=== PATIENT | female | born 1960 | race Caucasian/White ===

== ENCOUNTER 2019-09-22 21:47 | Emergency (ER) | payer BC, OTHER ==
[2019-09-22] MEDS ORDERED: FLU Vacc QS2019-20(6MOS+)/PF 60 MCG/0.5 ML SYRINGE IM ONE (22:30)
--- NOTE | 2019-09-22 22:39 | EDM.PDOC ---
ED HPI GENERAL MEDICAL PROBLEM - General Chief Complaint: Lower Extremity Injury/Pain Stated Complaint: LEFT LEG INJURY KNEE PAIN Time Seen by Provider: 09/22/19 22:00 Source of Information: Reports: Patient, Family () History Limitations: Reports: No Limitations - History of Present Illness INITIAL COMMENTS - FREE TEXT/NARRATIVE: Mrs. Patel is a very pleasant 59-year-old woman vascular history significant for arthritis, status post numerous orthopedic surgeries, who states that her right foot slipped while her left foot was still on the running board as she was getting out of the passenger side of her vehicle around 13:00 this afternoon , causing her left knee to bend sideways and somewhat backwards. Since then, she has developed increasingly worse left knee pain. Her left knee is painful to bear weight, and she states that it often jerel forward when she walks. The patient has been icing her knee, but has otherwise taken no over-the- counter or home remedies. The patient states that her left knee suffered a patellar dislocation when she was 14 years old. There was no fracture. It was reduced, but did not require surgery. The patient and her recently moved to this area from [place], [place], and she has not found a PCP here. Her PCP in [place], [place], is Dr. Kailyn Cooper. The patient has not received an influenza vaccine this season, but agreed to receive one here. Left Knee Pain Score (Numeric/FACES): 7 - Related Data Allergies Allergy/AdvReac Type Severity Reaction Status Date / Time No Known Allergies Allergy Verified 09/22/19 22:05 Home Meds: Home Meds ClonazePAM [KlonoPIN] 0.5 mg PO DAILY 09/22/19 [History] DULoxetine HCl [Cymbalta] 60 mg PO DAILY 09/22/19 [History] Desloratadine [Clarinex] 5 mg PO DAILY 09/22/19 [History] Montelukast [Singulair] 10 mg PO DAILY 09/22/19 [History] buPROPion [Wellbutrin] 150 mg PO DAILY 09/22/19 [History] Past Medical History HEENT History: Reports: Allergic Rhinitis Musculoskeletal History: Reports: Fracture (left elbow), Osteoarthritis Neurological History: Reports: Other (See Below) (Restless leg syndrome) Psychiatric History: Reports: Depression - Past Surgical History HEENT Surgical History: Reports: Adenoidectomy, Oral Surgery ([place] teeth extraction. Dental extractions.), Tonsillectomy Female Surgical History: Reports: Breast Reduction, Hysterectomy (with unilateral oophorectomy), Other (See Below) (Bladder suspension) Musculoskeletal Surgical History: Reports: ORIF (left elbow x 2), Shoulder Surgery (right, arthroscopic, x 4), Other (See Below) (Bilateral thumb fusions. Right thumb ligament repair x 2.) Dermatological Surgical History: Reports: Plastic Surgical Reconstruction/ Repair (abdominoplasty x 2) Social & Family History - Tobacco Use Smoking Status *Q: Never Smoker - Alcohol Use Alcohol Use History: Yes Alcohol Use Frequency: Rarely - Recreational Drug Use Recreational Drug Use: No - Living Situation & Occupation Living situation: Reports: , with Spouse Occupation: Unemployed Review of Systems - Review of Systems Review Of Systems: Comprehensive ROS is negative, except as noted in HPI. ED EXAM, GENERAL - Physical Exam Exam: See Below Exam Limited By: No Limitations General Appearance: Alert, WD/WN, No Apparent Distress Extremities: Other (There is minimal swelling to the left knee, when compared to the right, but no obvious joint effusion. No other visible abnormalities, such as erythema, ecchymosis, or abrasion. No tenderness to the anterior, lateral, medial, or posterior knee, however, there is some tenderness over the pes anserine bursa. Both anterior and posterior drawer signs are negative, and there is no laxity or pain involved with stressing the medial or lateral collateral ligaments. Neurovascular status of the left lower extremity is intact.) Course - Vital Signs Last Recorded V/S: Last Vital Signs Temp 36.8 C 09/22/19 22:04 Pulse 88 09/22/19 22:04 Resp 16 09/22/19 22:04 BP 144/98 H 09/22/19 22:04 Pulse Ox 100 09/22/19 22:04 - Orders/Labs/Meds Orders: Active Orders 24 hr Category Date Time Status Influenza Vaccine Charge [RC] .DISCHARGE Care 09/22/19 22:30 Active Knee 3V Lt [CR] Stat Exams 09/22/19 22:29 Ordered Meds: Medications Discontinued Medications Generic Name Dose Route Start Last Admin Trade Name Freq PRN Reason Stop Dose Admin Influenza Virus Vaccine 60 mcg 09/22/19 22:30 Fluzone Quad [id number] Syringe IM 09/22/19 22:31 .ONCE ONE - Re-Assessments/Exams Free Text/Narrative Re-Assessment/Exam: 09/22/19 23:03 3-view radiographs of the left knee appear to demonstrate a mild joint effusion , but no fractures or dislocations. Formal read per the Radiologist pending. The patient's physical exam does not suggest a ligamentous injury, however, she may have injured her meniscus, therefore I will have the patient fitted for crutches and have her follow-up with Ortho. I will also refer the patient to our clinic, to establish a PCP. The patient will receive an influenza vaccine prior to discharge. Departure - Departure Time of Disposition: 23:13 Disposition: Home, Self-Care 01 Condition: Good Clinical Impression: Internal derangement of left knee - Discharge Information *PRESCRIPTION DRUG MONITORING PROGRAM REVIEWED*: Not Applicable *COPY OF PRESCRIPTION DRUG MONITORING REPORT IN PATIENT MICHELE: Not Applicable Referrals: Eduin Gallardo MD [Physician] - Nehal Pak MD [Physician] - Forms: ED Department Discharge Additional Instructions: You were seen in the emergency room after slipping and injuring your left knee while getting out of a car. Workup in the ER included x-rays of your left knee, which show a mild joint effusion, but no broken bones or dislocations. Based on your history, physical exam, and ER x-rays, you appear to have an internal derangement of your left knee, possibly an injury to your meniscus. You have been fitted with crutches. We recommend that you use the crutches anytime you are ambulating. Be very careful going up or down stairs, and around ice. We recommend that you ice and elevate your left knee as much as possible over the next 2 days, to help minimize swelling. We recommend that you take [id number] ibuprofen, 2-3 tablets (400-600 mg) every 8 hours, with food, as needed for discomfort. Follow-up with the Orthopedic Surgeon Dr. Eduin Gallardo at the next available appointment. You may also follow-up with Dr. Nehal Pak, or any of the other providers in the clinic, to establish a PCP. If any other problems, please do not hesitate to return to the ER. *You received an influenza vaccine during your ER visit.* - My Orders Last 24 Hours: My Active Orders 09/22/19 22:29 Knee 3V Lt [CR] Stat 09/22/19 22:30 Influenza Vaccine Charge [RC] .DISCHARGE - Assessment/Plan Last 24 Hours: My Active Orders 09/22/19 22:29 Knee 3V Lt [CR] Stat 09/22/19 22:30 Influenza Vaccine Charge [RC] .DISCHARGE
--- NOTE | 2019-09-24 09:17 | CR ---
Left knee: AP, lateral and sunrise patellar views of the left knee were obtained. Small spur is noted at the attachment of the quadriceps tendon to the patella. Medial and lateral joint compartments are maintained in height. No acute fracture or other bony abnormality is identified. Impression: 1. Incidental patellar spur. 2. Nothing acute is appreciated on left knee exam. Diagnostic code #2 This report was dictated in Mountain Standard Time
== END 2019-09-22 23:28 | disposition home or self-care (01) ==
LOC: JD.ED 21:47
DX: M23.92 Unspecified internal derangement of left knee (principal); F32.9 Major depressive disorder, single episode, unspecified; Z79.899 Other long term (current) drug therapy; V48.4XXA Person boarding or alighting a car injured in noncollision transport accident, initial encounter; Y92.810 Car as the place of occurrence of the external cause
CPT/HCPCS: 73562-26-LT; 73562-LT; 90471; 90686; 99283; 99283-25

== ENCOUNTER 2020-12-14 22:47 | Emergency (ER) | payer BC, OTHER ==
[2020-12-14] MEDS ORDERED: Lidocaine/EPINEPHrine/Tetracaine Soln 1 ML TOP ONE (23:29)
--- NOTE | 2020-12-15 00:43 | EDM.PDOC ---
ED HPI GENERAL MEDICAL PROBLEM - General Chief Complaint: Bite:Animal, Insect Stated Complaint: DOG BITE Time Seen by Provider: 12/14/20 23:15 Source of Information: Reports: Patient History Limitations: Reports: No Limitations - History of Present Illness INITIAL COMMENTS - FREE TEXT/NARRATIVE: The patient presents with a dog bite to her face. She said her 's dog bit her. The dog's shots are up to date. The patient's tetanus is up to date. She has a 0.5cm laceration above her right upper lip. There are also some abrasions in that area. Onset: Sudden Duration: Minutes: Location: Reports: Face Severity: Mild Improves with: Reports: None Worsens with: Reports: None Associated Symptoms: Reports: No Other Symptoms - Related Data Allergies Allergy/AdvReac Type Severity Reaction Status Date / Time No Known Allergies Allergy Verified 12/14/20 23:13 Home Meds: Home Meds ClonazePAM [KlonoPIN] 0.5 mg PO DAILY 09/22/19 [History] DULoxetine HCl [Cymbalta] 60 mg PO DAILY 09/22/19 [History] Desloratadine [Clarinex] 5 mg PO DAILY 09/22/19 [History] Montelukast [Singulair] 10 mg PO DAILY 09/22/19 [History] buPROPion [Wellbutrin] 150 mg PO DAILY 09/22/19 [History] Amoxicillin/Clavulanate K [Augmentin 875-125 MG] 1 tab PO BID #14 tablet 12/15/20 [Rx] Past Medical History HEENT History: Reports: Allergic Rhinitis Musculoskeletal History: Reports: Fracture, Osteoarthritis Neurological History: Reports: Other (See Below) (Restless leg syndrome) Psychiatric History: Reports: Depression - Infectious Disease History Infectious Disease History: Reports: Novel Coronavirus Other Infectious Disease History: covid in august 2020 - Past Surgical History HEENT Surgical History: Reports: Adenoidectomy, Oral Surgery, Tonsillectomy GI Surgical History: Reports: Other (See Below) Other GI Surgeries/Procedures: tummy tuck Female Surgical History: Reports: Breast Reduction, Hysterectomy, Other (See Below) Musculoskeletal Surgical History: Reports: ORIF, Shoulder Surgery, Other (See Below) Other Musculoskeletal Surgeries/Procedures:: elbow surgery, hand surgery x2 Dermatological Surgical History: Reports: Plastic Surgical Reconstruction/Repair Social & Family History - Tobacco Use Tobacco Use Status *Q: Never Tobacco User - Caffeine Use Caffeine Use: Reports: None - Recreational Drug Use Recreational Drug Use: No - Living Situation & Occupation Living situation: Reports: , with Spouse Occupation: Unemployed ED ROS GENERAL - Review of Systems Review Of Systems: See Below Constitutional: Reports: No Symptoms HEENT: Reports: Other (laceration to right side of her face) Respiratory: Reports: No Symptoms Cardiovascular: Reports: No Symptoms Endocrine: Reports: No Symptoms GI/Abdominal: Reports: No Symptoms : Reports: No Symptoms Musculoskeletal: Reports: No Symptoms ED EXAM, ANIMAL BITE - Physical Exam Exam: See Below Exam Limited By: No Limitations General Appearance: Alert, No Apparent Distress Ears: Normal External Exam Nose: Normal Inspection Head: Other (abrasions to the right side of her face with a 0.5cm laceration just above her right upper lip.) ED ANIMAL BITE PROCEDURES - Laceration/Wound Repair Right Face Lac/Wound Length In cm: 0.5 Appearance: Subcutaneous, Linear Anesthetic Type: Topical (LET) Skin Prep: Saline Exploration/Debridement/Repair: Wound Explored, In a Bloodless Field, Explored to Base Closed With: Sutures Suture Size: 5-0 # of Sutures: 1 Suture Type: Interrupted, Simple, Other (Vicryl) Tetanus Status Addressed: Yes Complications: No Course - Vital Signs Last Recorded V/S: Last Vital Signs Temp 97.1 F 12/14/20 23:11 Pulse 87 12/14/20 23:11 Resp 16 12/14/20 23:11 BP 135/87 12/14/20 23:11 Pulse Ox 98 12/14/20 23:11 - Orders/Labs/Meds Meds: Medications Discontinued Medications Generic Name Dose Route Start Last Admin Trade Name Kyler PRN Reason Stop Dose Admin Lidocaine/Tetracaine 1 ml 12/14/20 23:29 12/14/20 23:34 Let Soln TOP 12/14/20 23:30 1 ml ONETIME ONE Administration - Re-Assessments/Exams Free Text/Narrative Re-Assessment/Exam: 12/15/20 00:41 The laceration was gapping and more when she move her lips. I opted to put a suture in. I will also get her on augmentin. Departure - Departure Time of Disposition: 00:45 Disposition: Home, Self-Care 01 Condition: Good Clinical Impression: Laceration of face Qualifiers: Encounter type: initial encounter Qualified Code(s): S01.81XA - Laceration without foreign body of other part of head, initial encounter Dog bite Qualifiers: Encounter type: initial encounter Qualified Code(s): W54.0XXA - Bitten by dog, initial encounter - Discharge Information *PRESCRIPTION DRUG MONITORING PROGRAM REVIEWED*: Not Applicable *COPY OF PRESCRIPTION DRUG MONITORING REPORT IN PATIENT MICHELE: Not Applicable Prescriptions: Amoxicillin/Clavulanate K [Augmentin 875-125 MG] 1 tab PO BID #14 tablet Referrals: Sally Dillon PA-C [Primary Care Provider] - 1 Week Additional Instructions: Clean the wound with warm soapy water 2 times per day and apply antibiotic ointment after for 5 days. The sutures should come out in 7 to 10 days. If they don't see your doctor to have them pulled out. Take the antibiotic 2 times per day for 7 days. Look for any signs of infection such as redness, swelling or pain. If you see any of these signs please see your doctor. Watch for your dog acting abnormal for 10 days. If he does see your Vet. Sepsis Event Note (ED) - Evaluation Sepsis Screening Result: No Definite Risk - Focused Exam Vital Signs: Vital Signs Temp Pulse Resp BP Pulse Ox 12/14/20 23:11 97.1 F 87 16 135/87 98
== END 2020-12-15 00:50 | disposition home or self-care (01) ==
LOC: JD.ED 22:47
DX: S01.85XA Open bite of other part of head, initial encounter (principal); Z79.899 Other long term (current) drug therapy; W54.0XXA Bitten by dog, initial encounter
CPT/HCPCS: 12011; 99283; 99283-25

== ENCOUNTER 2021-07-16 11:03 | Emergency (ER) | payer BC, OTHER ==
[2021-07-16] MEDS ORDERED: Sodium Chloride 0.9% 10 ML Syringe FLUSH PRN (11:40)
--- NOTE | 2021-07-16 12:32 | CR ---
Chest: Portable view of the chest was obtained. Comparison: No prior chest imaging is available. Heart size and mediastinum are within normal limits. Lungs are clear with no acute parenchymal change. Mild scoliosis is noted within the spine with scattered degenerative change. Impression: 1. Nothing acute is appreciated on portable chest x-ray. Diagnostic code #2
--- NOTE | 2021-07-16 14:12 | EDM.PDOC ---
ED HPI GENERAL MEDICAL PROBLEM - General Chief Complaint: Cardiovascular Problem Stated Complaint: HIGH BLOOD PRESSURE Time Seen by Provider: 07/16/21 11:23 Source of Information: Reports: Patient History Limitations: Reports: No Limitations - History of Present Illness INITIAL COMMENTS - FREE TEXT/NARRATIVE: The patient presents with elevated blood pressure and palpitations. She said this started on Tuesday. She also has congestion, runny nose, cough and sinus pressure. She has a history of sinus infections. She has not been around anyone with COVID 19. She had it a few months ago. She has no lung problems. She does not smoke. She has no chest pain or shortness of breath. Onset: Gradual Duration: Day(s): Severity: Moderate Improves with: Reports: None Worsens with: Reports: None Associated Symptoms: Reports: Cough, Fever/Chills. Denies: Chest Pain, Headaches, Nausea/Vomiting, Shortness of Breath Headache Pain Score (Numeric/FACES): 7 - Related Data Allergies Allergy/AdvReac Type Severity Reaction Status Date / Time No Known Allergies Allergy Verified 07/16/21 11:28 Home Meds: Home Meds ClonazePAM [KlonoPIN] 0.5 mg PO DAILY 09/22/19 [History] DULoxetine HCl [Cymbalta] 60 mg PO DAILY 09/22/19 [History] Desloratadine [Clarinex] 5 mg PO DAILY 09/22/19 [History] Montelukast [Singulair] 10 mg PO DAILY 09/22/19 [History] buPROPion [Wellbutrin] 150 mg PO DAILY 09/22/19 [History] Amoxicillin/Clavulanate K [Augmentin 875-125 MG] 1 tab PO BID #14 tablet 12/15/20 [Rx] Amoxicillin 875 mg PO BID #20 tab 07/16/21 [Rx] Codeine/Promethazine [Phenergan with Codeine] 5 - 10 ml PO Q6HR PRN #300 ml 07/16/21 [Rx] Past Medical History HEENT History: Reports: Allergic Rhinitis Musculoskeletal History: Reports: Fracture, Osteoarthritis Neurological History: Reports: Other (See Below) Psychiatric History: Reports: Depression - Infectious Disease History Infectious Disease History: Reports: Novel Coronavirus Other Infectious Disease History: covid in august 2020 - Past Surgical History HEENT Surgical History: Reports: Adenoidectomy, Oral Surgery, Tonsillectomy GI Surgical History: Reports: Other (See Below) Other GI Surgeries/Procedures: tummy tuck Female Surgical History: Reports: Breast Reduction, Hysterectomy, Other (See Below) Musculoskeletal Surgical History: Reports: ORIF, Shoulder Surgery, Other (See Below) Other Musculoskeletal Surgeries/Procedures:: elbow surgery, hand surgery x2 Dermatological Surgical History: Reports: Plastic Surgical Reconstruction/Repair Social & Family History - Tobacco Use Tobacco Use Status *Q: Never Tobacco User Second Hand Smoke Exposure: No - Caffeine Use Caffeine Use: Reports: None - Recreational Drug Use Recreational Drug Use: No - Living Situation & Occupation Living situation: Reports: , with Spouse Occupation: Unemployed ED ROS GENERAL - Review of Systems Review Of Systems: See Below Constitutional: Reports: Fever, Chills HEENT: Reports: Other (congestion, runny nose and sinus pressure) Respiratory: Reports: Cough. Denies: Shortness of Breath Cardiovascular: Reports: No Symptoms Endocrine: Reports: No Symptoms GI/Abdominal: Reports: No Symptoms ED EXAM, GENERAL - Physical Exam Exam: See Below Exam Limited By: No Limitations General Appearance: Alert, No Apparent Distress Ears: Normal External Exam Nose: Clear Rhinorrhea Throat/Mouth: Normal Inspection Head: Atraumatic, Normocephalic Neck: Normal Inspection Respiratory/Chest: No Respiratory Distress, Lungs Clear, Normal Breath Sounds Cardiovascular: Regular Rate, Rhythm, No Edema, No Murmur GI/Abdominal: Soft, Non-Tender, No Organomegaly, No Mass Back Exam: Normal Inspection Extremities: Normal Inspection #1 Interpretation EKG Date: 07/16/21 Time: 11:33 Rhythm: NSR Rate (Beats/Min): 97 [place]: Normal P-Wave: Present QRS: Normal ST-T: Normal QT: Normal Course - Vital Signs Last Recorded V/S: Last Vital Signs Temp 98.3 F 07/16/21 11:24 Pulse 105 H 07/16/21 11:24 Resp 20 07/16/21 11:24 BP 170/89 H 07/16/21 11:24 Pulse Ox 95 07/16/21 11:24 - Orders/Labs/Meds Orders: Active Orders 24 hr Category Date Time Status Cardiac Monitoring [RC] . DIRECTED Care 07/16/21 12:57 Active Peripheral IV Care [RC] . DIRECTED Care 07/16/21 11:41 Active LACTIC ACID [CHEM] Stat Lab 07/16/21 13:30 Received Sodium Chloride 0.9% [Saline Flush] Med 07/16/21 11:40 Active 10 ml FLUSH ASDIRECTED PRN Peripheral IV Insertion Adult [OM.PC] Stat Oth 07/16/21 11:40 Ordered Medication Orders Sodium Chloride (Sodium Chloride 0.9% 10 Ml Syringe) 10 ml FLUSH ASDIRECTED PRN PRN Reason: Keep Vein Open Last Admin: 07/16/21 11:53 Dose: 10 ml Documented by: RUTHANN Labs: Laboratory Tests 07/16/21 07/16/21 07/16/21 Range/Units 11:50 11:50 11:55 WBC 7.61 (3.98-10.04) K/mm3 RBC 4.42 (3.98-5.22) M/mm3 Hgb 12.9 (11.2-15.7) gm/dl Hct 40.2 (34.1-44.9) % MCV 91.0 (79.4-94.8) fl MCH 29.2 (25.6-32.2) pg MCHC 32.1 L (32.2-35.5) g/dl RDW Std Deviation 44.1 (36.4-46.3) fL Plt Count 316 (182-369) K/mm3 MPV 9.6 (9.4-12.3) fl Neut % (Auto) 79.0 H (34.0-71.1) % Lymph % (Auto) 11.6 L (19.3-51.7) % [place] % (Auto) 6.7 (4.7-12.5) % Eos % (Auto) 2.4 (0.7-5.8) Baso % (Auto) 0.3 (0.1-1.2) % Neut # (Auto) 6.02 (1.56-6.13) K/mm3 Lymph # (Auto) 0.88 L (1.18-3.74) K/mm3 [place] # (Auto) 0.51 H (0.24-0.36) K/mm3 Eos # (Auto) 0.18 (0.04-0.36) K/mm3 Baso # (Auto) 0.02 (0.01-0.08) K/mm3 Sodium 140 (136-145) mEq/L Potassium 3.5 (3.5-5.1) mEq/L Chloride 104 (98-107) mEq/L Carbon Dioxide 25 (21-32) mEq/L Anion Gap 14.5 (5-15) BUN 25 H (7-18) mg/dL Creatinine 1.2 H (0.55-1.02) mg/dL Est Cr Clr Drug Dosing 44.30 mL/min Estimated GFR (MDRD) 46 (>60) mL/min BUN/Creatinine Ratio 20.8 H (14-18) Glucose 136 H (70-99) mg/dL Calcium 8.4 L (8.5-10.1) mg/dL Total Bilirubin 0.4 (0.2-1.0) mg/dL AST 18 (15-37) U/L ALT 25 (14-59) U/L Alkaline Phosphatase 83 (46-116) U/L Troponin I < 0.017 (0.00-0.056) ng/mL C-Reactive Protein 2.8 H* (<1.0) mg/dL Total Protein 7.1 (6.4-8.2) g/dl Albumin 3.3 L (3.4-5.0) g/dl Globulin 3.8 gm/dL Albumin/Globulin Ratio 0.9 L (1-2) SARS-CoV-2 RNA ([place]) Negative (NEGATIVE) Meds: Medications Generic Name Dose Route Start Last Admin Trade Name Freq PRN Reason Stop Dose Admin Sodium Chloride 10 ml 07/16/21 11:40 07/16/21 11:53 Sodium Chloride 0.9% 10 Ml Syringe FLUSH 10 ml ASDIRECTED PRN Administration Keep Vein Open - Re-Assessments/Exams Free Text/Narrative Re-Assessment/Exam: 07/16/21 14:10 I ordered an IV saline lock, EKG, CXR, labs and COVID 19. Her EKG shows a NSR with no acute changes. Her CXR looks good. Her CBC looks good. Her creatinine was elevated at 1.2. Her troponin was negative. Her CRP was elevated at 2.8. Her COVID 19 was negative. I will get her on an antibiotic for the sinusitis and something for the cough. 07/16/21 14:13 She had no palpitations here and her BP is better. I feel it is related to the sinusitis. Departure - Departure Time of Disposition: 14:15 Disposition: Admitted As Inpatient 66 Condition: Good Clinical Impression: Sinusitis Qualifiers: Sinusitis location: unspecified location Chronicity: acute Recurrence: non- recurrent Qualified Code(s): J01.90 - Acute sinusitis, unspecified Prescriptions: Amoxicillin 875 mg PO BID #20 tab Codeine/Promethazine [Phenergan with Codeine] 5 - 10 ml PO Q6HR PRN #300 ml PRN Reason: Cough Referrals: Brigid Barbosa NP [Primary Care Provider] - 1 Week Additional Instructions: Take the amoxicillin 2 times per day for 10 days. Take the phenergan with ciodeine every 6 hours as needed for coughing. Follow up with your doctor if you are not better within a week. Please return if you are worse. Sepsis Event Note (ED) - Evaluation Sepsis Screening Result: No Definite Risk - Focused Exam Vital Signs: Vital Signs Temp Pulse Resp BP Pulse Ox 07/16/21 11:24 98.3 F 105 H 20 170/89 H 95 - My Orders Last 24 Hours: My Active Orders 07/16/21 11:40 Sodium Chloride 0.9% [Saline Flush] 10 ml FLUSH ASDIRECTED PRN Peripheral IV Insertion Adult [OM.PC] Stat 07/16/21 11:41 Peripheral IV Care [RC] . DIRECTED 07/16/21 12:57 Cardiac Monitoring [RC] . DIRECTED 07/16/21 13:30 LACTIC ACID [CHEM] Stat - Assessment/Plan Last 24 Hours: My Active Orders 07/16/21 11:40 Sodium Chloride 0.9% [Saline Flush] 10 ml FLUSH ASDIRECTED PRN Peripheral IV Insertion Adult [OM.PC] Stat 07/16/21 11:41 Peripheral IV Care [RC] . DIRECTED 07/16/21 12:57 Cardiac Monitoring [RC] . DIRECTED 07/16/21 13:30 LACTIC ACID [CHEM] Stat
== END 2021-07-16 15:20 | disposition critical access hospital (66) ==
LOC: JD.ED 11:03
DX: J01.90 Acute sinusitis, unspecified (principal); Z20.822 Contact with and (suspected) exposure to COVID-19
CPT/HCPCS: 36415; 71045; 71045-26; 80053; 83605; 84484; 85025; 86140; 93005; 99285-25; U0002